=== PATIENT | female | born 1940 | race Caucasian/White ===

== ENCOUNTER 2022-01-17 17:38 | Emergency (ER) | payer MEDICARE, MEDICAID ==
[~2022-01-17] VITALS: Ht 175 cm; Wt 68.0 kg
--- NOTE | 2022-01-17 17:53 | ED Lower Extremity ---
General Chief Complaint: Lower Extremity Stated Complaint: L LEG PAIN Source: patient Exam Limitations: no limitations (RALF BRINK STUDENT) History of Present Illness Date Seen by Provider: Jan 17, 2022 Time Seen by Provider: 17:43 Initial Comments Mrs. Grace is a 81 yo female with PMH of heavy smoking and COPD that presents to ED today due to L side LE pain. She states that the pain started about 5 days ago and has progressively gotten worse. Rates it a 3/10 sitting and 10 if she tries to walk on it. The pain is located in the L food and calf and states it radiates up the leg. She has tried aleeve for the pain but it hasn't helped much. She does complain of some urinary frequency and SOB as well as the foot pain. She is a heavy smoker and states that her legs are normally discolored. No trauma or wounds on the foot are noted. It has been a couple years since she had an ultrasound of her legs. (RALF BRINK STUDENT) Onset: other (5 days) Severity: moderate Pain/Injury Location: right leg, right thigh, right foot Method of Injury: unknown Modifying Factors: Worse With Movement; Improves With Rest (ROBERT FLOYD MD) Allergies and Home Medications Allergies Coded Allergies: No Known Drug Allergies (Unverified , 01/17/22) Patient Home Medication List Home Medication List Reviewed: Yes (ROBERT FLOYD MD) Review of Systems Constitutional: No chills, No fever EENTM: No hearing loss, No vision loss Respiratory: cough, short of breath (chornic COPD) Cardiovascular: No chest pain, No edema, No palpitations Gastrointestinal: No abdominal pain, No constipation, No diarrhea, No melena, No nausea, No vomiting Genitourinary: No dysuria, No frequency; incontinence Musculoskeletal: other (LLE pain. No pulse is easily noted but she states she has weak pulses. tenderness to feet but not so much with her calfs. ) Skin: change in color (Chronic discoloration of LE bilat); No pruritus, No rash Psychiatric/Neurological: Denies Headache, Denies Numbness (RALF BRINK STUDENT) Respiratory: cough (Chronic), short of breath (Chronic) Cardiovascular: No chest pain, No edema Musculoskeletal: joint pain, muscle pain Psychiatric/Neurological: Denies Numbness, Denies Tingling (ROBERT FLOYD MD) Past Kmzorqm-Nzqvaj-[id number] Hx Patient Social History Tobacco Use?: Yes Tobacco type used: Cigarettes Smoking Status: Current Everyday Smoker Use of E-Cig and/or Vaping dev: No Substance use?: No Alcohol Use?: Yes Alcohol type: Beer Alcohol Frequency: Couple times a week Pt feels they are or have been: No (RALF BRINK) Tobacco Use?: Yes Tobacco type used: Cigarettes Use of E-Cig and/or Vaping dev: No Substance use?: No Alcohol Use?: No (ROBERT FLOYD MD) Immunizations Up To Date Influenza Vaccine Up-to-Date: Yes; Up-to-Date (RALF BRINK) Past Medical History Surgery/Hospitalization HX: COPD (RALF BRINK) Family Medical History Reviewed Nursing Family Hx (ROBERT FLOYD MD) No Pertinent Family Hx (ROBERT FLOYD MD) Physical Exam Vital Signs Vital Signs - First Documented 01/17/22 17:42 Temp 36.2 Pulse 90 Resp 18 B/P (MAP) 126/84 (98) Pulse Ox 98 O2 Delivery Room Air (ROBERT FLOYD MD) Vital Signs Capillary Refill : (RALF BRINK) Height, Weight, BMI Height: '" Weight: lbs. oz. kg; BMI Method: General Appearance: thin, other (Chornically ill, Poor hygeine ) HEENT: PERRL/EOMI, pharynx normal Cardiovascular: regular rate, rhythm, no edema, no murmur Respiratory: chest non-tender, no respiratory distress, no accessory muscle use, crackles (Bilateral ) Gastrointestinal: normal bowel sounds, non tender, soft Hips: bilateral hip non-tender, bilateral hip normal inspection Legs: left leg pain, left leg other (Purpleish dicoloration, tender on palpation mildy in calf) Knees: bilateral knee non-tender, bilateral knee normal inspection Ankles: bilateral ankle non-tender, bilateral ankle normal inspection; right ankle other Feet: right foot other (Tenderness to palpation, both feet are cool to touch, odorous, no visible wounds, purpleish discoloration, normal ROM) Neurologic/Psychiatric: alert, normal mood/affect, oriented x 3 Skin: other (Cool discolored bilat LE, rest of skin is normal appearing. ) (RALF BRINK MED STUDENT) General Appearance: WD/WN, no apparent distress Cardiovascular: regular rate, rhythm, no murmur Respiratory: no respiratory distress, no accessory muscle use, crackles (Bilateral ), other (Coarse sounds bilateral) Legs: left leg pain, left leg other (No obvious swelling and similar in size to other leg. Both legs have distal discoloration consistent with vascular insufficiency without wounds.) Feet: right foot other (Tenderness to palpation, both feet are cool to touch, odorous, no visible wounds, purpleish discoloration, normal ROM. Capillary refill 4 seconds and dopplerable pulses noted to both feet equal.) Neurologic/Psychiatric: alert, oriented x 3 Skin: warm/dry, other (Cool discolored bilat LE, rest of skin is normal appearing. Feet are red but blanchable with cap refill of approximately 4 seconds bilateral.) (ROBERT FLOYD MD) Progress/Results/Core Measures Results/Orders My Orders Orders - ROBERT FLOYD MD Acetaminophen Tablet (Tylenol Tablet) (01/17/22 18:24) Prednisone Tablet (Deltasone Tablet) (01/17/22 18:30) (ROBERT FLOYD MD) Medications Given in ED Current Medications Medications Dose Ordered Sig/Maria Eugenia Route Start Time Stop Time Status Last Admin Dose Admin Prednisone 40 mg ONCE ONCE PO 01/17/22 18:30 01/17/22 18:31 DC 01/17/22 18:31 40 MG (ROBERT FLOYD MD) Vital Signs/I&O 01/17/22 01/17/22 17:42 18:13 Temp 36.2 36.2 Pulse 90 90 Resp 18 18 B/P (MAP) 126/84 (98) 126/84 Pulse Ox 98 98 O2 Delivery Room Air Room Air (ROBERT FLOYD MD) Progress Progress Note : Time: 18:00 Progress Note Pt states she has chronic poor circulation and discoloration. No fever or chills. Will get some basic labs and U/S of LE to check circulation. Could be iscemia of foot or cellulitits. No trauma or open wounds. (RALF BRINK MED STUDENT) Progress Note : Progress Note I have seen and evaluated the patient and agree with above except as indicated. I have directed the plan of care. Patient is here with right leg pain that radiates from her hip down to her great toe and is worse with activity and better with rest. She does have discoloration of the legs but this is typical for her. She is a smoker long-term and has known vascular insufficiency. 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 She follows with Dr. Anderson but has not seen her for a few years. She has tried Aleve 1 or 2 tablets daily and that has not helped the pain. She is on day 5. Does have some bladder leakage but that is typical. Denies numbness between her legs or weakness of the legs. Does have worsening pain when she walks. She does live with her son who supports her. Findings more consistent with sciatica. Doppler ultrasound done and did verify bilateral dorsalis pedis pulses that were equal. Evaluation as above. We will initiate treatment for sciatica and we have given prednisone 40 mg p.o. now as well as Tylenol 1 g p.o. I did discuss with her regarding outpatient therapy including Aleve and acetaminophen and topical pain preparations such as Aspercreme with lidocaine or similar. She will get that. We did discuss further evaluation with radiology here or conservative therapy. She is okay with conservative therapy. Discharged home with return precautions. Patient verbalized understanding of instructions and agreement with plan. (ROBERT FLOYD MD) Departure Impression Primary Impression: Sciatica, left side Disposition: 01 HOME, SELF-CARE Condition: Stable Departure-Patient Inst. Decision time for Depature: 18:40 (ROBERT FLOYD MD) Referrals: ROSENDO ANDERSON MD (PCP/Family) Primary Care Physician Patient Instructions: Sciatica (DC) Add. Discharge Instructions: All discharge instructions reviewed with patient and/or family. Voiced understanding. You may continue the Aleve 1 or 2 tablets once or twice a day. You may also take Tylenol/acetaminophen up to 1000 mg every 6-8 hours as needed for pain. You may use [id number] preparations such as icy hot with lidocaine, Aspercreme with lidocaine or salon pass with lidocaine patches or cream to low back and/or upper left leg per package directions. You need to call and make appointment with your doctor for recheck and further evaluation. Return for worse pain, weakness, numbness between your legs, difficulty with walking or going to the bathroom or other concerns as needed. Take medications as directed. Scripts Prednisone (Prednisone) 20 Mg Tab 40 MG PO DAILY, #10 TAB 0 Refills Prov: ROBERT FLOYD MD 01/17/22 RALF BRINK MED STUDENT Jan 17, 2022 17:53 ROBERT FLOYD MD Jan 17, 2022 18:40
[2022-01-17 18:13] VITALS: BP 126/84
[2022-01-17] MEDS ORDERED: ACETAMINOPHEN 500 MG TAB (TYLENOL) PO STA (18:24)
[2022-01-17] MEDS ORDERED: predniSONE 20 MG TAB PO ONE (18:30)
[2022-01-17] MEDS ORDERED: PRD20T PO (18:43)
== END 2022-01-17 18:45 | disposition home or self-care (01) ==
LOC: EDUNIT# 17:38 → ER FS 17:39
DX: M54.32 Sciatica, left side (principal); F17.210 Nicotine dependence, cigarettes, uncomplicated
CPT/HCPCS: 99283